=== PATIENT | female | born 1960 | race American Indian/Alaskan Native ===

== ENCOUNTER 2022-01-07 05:46 | Emergency (ER) | payer BC ==
[2022-01-07] MEDS ORDERED: ASPIRIN 325 MG TAB PO ONE (06:06)
--- NOTE | 2022-01-07 06:12 | Emergency Department Report ---
ED Chest Pain HPI - General Chief Complaint: Chest Pain Stated Complaint: CHEST DISCOMFORT Time Seen by Provider: 01/07/22 06:10 Source: patient Mode of arrival: Ambulatory Limitations: No Limitations - History of Present Illness Initial Comments: The patient was evaluated in the emergency department for symptoms described in the history of present illness. He/she was evaluated in the context of the global COVID-19 pandemic, which necessitated consideration that the patient might be at risk for infection with the virus that causes COVID-19. Instit utional protocols and algorithms that pertain to the evaluation of patients at risk for COVID-19 are in a state of rapid change based on information released by regulatory bodies including the CDC and federal and state organizations. These policies and algorithms were followed during the patient's care in the emergency department. Please note that these policies, procedures and recommendations changed on a rapid basis. 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 The patient states the chest discomfort is left lateral thoracic, and occasionally radiates to her back. It is nonexertional, lasts for few seconds, and does not have exacerbating or relieving factors. She denies vomiting, diaphoresis, exertional shortness of breath. She denies all other symptoms. She denies significant family history for CAD/PE/DVT. She does report a recent trip to [facility], and also reports that she drove for approximately 2 hours while in [facility] to get to the beach. No recent aspirin consumption. No recent strenuous heavy lifting. Reports that she is pain-free at this time. MD Complaint: chest pain -: days(s) Pain Location: left chest Pain Radiation: back Quality: aching Consistency: intermittent Improves With: nothing Worsens With: nothing Context: recent travel Aspirin use within the Past 7 Days: (0) No - Related Data Previous Rx's Medication Instructions Recorded Last Taken Type Aspirin [Aspirin BABY CHEW TAB] 81 mg PO QDAY #30 tab.chew 01/07/22 Unknown Rx Allergies Allergy/AdvReac Type Severity Reaction Status Date / Time morphine Allergy Hives Verified 01/07/22 06:03 Heart Score - HEART Score History: Slightly suspicious EKG: Non-specific Age: 45-65 Risk factors: 1-2 risk factors Troponin: < normal limit HEART Score: 3 - EKG Read Time Time EKG Completed: 06:00 EKG Read Time: 06:00 - Critical Actions Critical Actions: 0-3 pts:0.9-1.7%risk of adverse cardiac event.Candidate for discharge ED Review of Systems ROS: Stated complaint: CHEST DISCOMFORT Other details as noted in HPI Comment: All other systems reviewed and negative Cardiovascular: chest pain ED Past Medical Hx - Medications Home Medications: Home Medications Medication Instructions Recorded Confirmed Last Taken Type Aspirin [Aspirin BABY CHEW TAB] 81 mg PO QDAY #30 tab.chew 01/07/22 Unknown Rx ED Physical Exam - General Limitations: No Limitations General appearance: alert, in no apparent distress - Head Head exam: Present: atraumatic, normocephalic - Eye Eye exam: Present: normal appearance, EOMI. Absent: nystagmus - ENT ENT exam: Present: normal exam, normal orophraynx, mucous membranes moist, normal external ear exam - Neck Neck exam: Present: normal inspection, full ROM. Absent: tenderness, meningismus - Respiratory Respiratory exam: Present: normal lung sounds bilaterally. Absent: respiratory distress, wheezes, rales, rhonchi, stridor, decreased breath sounds - Cardiovascular Cardiovascular Exam: Present: regular rate, normal rhythm, normal heart sounds. Absent: bradycardia, tachycardia, irregular rhythm, systolic murmur, diastolic murmur, rubs, gallop - GI/Abdominal GI/Abdominal exam: Present: soft. Absent: distended, tenderness, guarding, rebound, rigid, pulsatile mass - Extremities Exam Extremities exam: Present: normal inspection, full ROM, other (2+ pulses noted in the bilateral upper and lower extremities. There is no palpable cord. negative Homans sign. Muscular compartments are soft. The pelvis is stable.). Absent: pedal edema, calf tenderness - Back Exam Back exam: Present: normal inspection. Absent: tenderness, CVA tenderness (R), CVA tenderness (L), paraspinal tenderness, vertebral tenderness - Neurological Exam Neurological exam: Present: alert, oriented X3, normal gait, other (No facial dr oop. Tongue midline. Extraocular movements intact bilaterally. Facial sensation intact to light touch in V1, V2, V3 distribution bilaterally. 5 and a 5 strength in 4 extremities. Sensation intact to light touch in 4 extremities.). Absent: motor sensory deficit - Psychiatric Psychiatric exam: Present: normal affect, normal mood - Skin Skin exam: Present: warm, dry, intact, normal color. Absent: rash ED Course Vital Signs 01/07/22 01/07/22 01/07/22 05:51 06:27 07:41 Temperature 97.4 F L 98.4 F Pulse Rate 72 58 L Respiratory 16 16 Rate Blood Pressure 148/84 151/68 O2 Sat by Pulse 98 98 100 Oximetry - Reevaluation(s) Reevaluation #1: 01/07/22 06:51 Differential diagnosis, include but not limited to: GERD, gastritis, hiatal hernia, pneumonia, costochondritis, coronary artery disease Assessment and plan: 61-year-old female, who is not currently tachycardic, tachypneic or hypoxic, who is low risk by Wells criteria for pulmonary embolism, Patient has equal pulses in the upper and lower extremities, no pulsatile abdominal mass, and an unremarkable x-ray of the chest, therefore, aortic dise ase is very unlikely. Patient at low risk for major adverse cardiac event as per heart score. Trop onin negative x1 in the context of days of symptoms, therefore, acute myocardial infarction is ruled out. Given recent trip to [facility], a D-dimer is sent, found to be elevated, and therefore, CT scan of the chest is ordered. I did discuss this with the patient, and advised that should ER work-up be unremarkable, it would be reasonable to have her follow-up as an outpatient with cardiology. She endorsed understanding 01/07/22 07:54 01/07/22 08:[address] scan of the chest negative for acute findings. Patient ambulatory around the department, pleasant and cooperative, and in no acute distress. She denies physical pain at this time, and endorses resolution of her symptoms. As a courtesy, I reached out to cardiology on-call, Dr. Bonilla Palomo Discussed the patient's history, physical, laboratory studies and imaging studies and clinical impression. He advises that he can accommodate the patient in [facility], this Saturday, at 9:00 in the morning for stress test. N.p.o. after midnight. I extensively discussed this with the patient, who endorsed understanding. Return precautions are reviewed. All questions are answered STAN score - Stan Score Age > 65: (0) No Aspirin use within the Past 7 Days: (0) No 3 or more CAD Risk Factors: (0) No 2 or more Angina events in past 24 hrs: (0) No Known CAD with more than 50% Stenosis: (0) No Elevated Cardiac Markers: (0) No ST Deviation Greater than 0.5mm: (0) No STAN Score: 0 ED Medical Decision Making - Lab Data Result diagrams: 01/07/22 06:43 01/07/22 06:43 Vital Signs 01/07/22 01/07/22 05:51 06:27 Temperature 97.4 F L Pulse Rate 72 Respiratory 16 Rate Blood Pressure 148/84 O2 Sat by Pulse 98 98 Oximetry - EKG Data -: EKG Interpreted by Nc EKG shows normal: sinus rhythm Rate: normal - EKG Data When compared to previous EKG there are: previous EKG unavailable 01/07/22 06:49 The EKG is interpreted at 06: 00 Sinus rhythm, 62 bpm. Normal axis, normal P wave axis, left ventricular hypertrophy, intervals are within normal limits. This is an abnormal EKG. This is not a STEMI. There is no prior for comparison. - Radiology Data Radiology results: pending, report reviewed, image reviewed CHEST 2 VIEWS INDICATION / CLINICAL INFORMATION: Chest Pain x2days. COMP ARISON: None available. FINDINGS: SUPPORT DEVICES: None. HEART / MEDIASTINUM: No significant abnormality. LUNGS / PLEURA: No significant pulmonary or pleural abnormality. No pneumothorax. BONES: No significant osseous abnormality. ADDITIONAL FINDINGS: No significant additional findings. IMPRESSION: 1. No active cardiopulmonary disease. Signer Name: Hemant Mckeon II, MD Signed: 01/07/2022 5:25 AM Workstation Name: [id number] CTA chest with contrast INDICATION : Acute chest pain, positive D-dimer. TECHNIQUE: Axial imaging performed through the chest, with contrast bolus timing set to maximize opacification of the pulmonary arteries. 3-plane MIP reformatted images were obtained. All CT scans at this location are performed using CT dose reduction for ALARA by means of automated exposure control. 80 mL of intravenous contrast administered. COMPARISON: None FINDINGS: Bolus/PTE: Contrast bolus timing is adequate. No filling defect is present to suggest PTE. Mediastinum: Heart and great vessels appear normal. No pathologic mediastinal adenopathy. Lungs: Lungs are clear. Upper abdomen: Limited imaging of the upper abdomen shows nothing acute. Bones: Degenerative changes in the spine with nothing acute. IMPRESSION: Negative for PTE. Clear lungs. Signer Name: Freedom Comer MD Signed: 01/07/2022 7:17 AM Workstation Name: [id number] Critical care attestation.: If time is entered above; I have spent that time in minutes in the direct care of this critically ill patient, excluding procedure time. ED Disposition Clinical Impression: Nonspecific chest pain Disposition: HOME / SELF CARE / HOMELESS Is pt being admited?: No Does the pt Need Aspirin: No Condition: Good Instructions: Nonspecific Chest Pain, Adult Additional Instructions: As we discussed, patient is scheduled for follow-up with [facility], this Saturday, at 9:00 in the morning, at the [place] location [address] [place], [place] [id number] Do not eat anything after midnight on the preceding evening. Avoid consumption of Motrin, ibuprofen, Naprosyn, Aleve, heavy and spicy foods, alcohol, tobacco, and smoke products. Patient may take a daily aspirin, 81 mg [id number]. Follow-up with her primary care doctor within the next 2 weeks. Please return to the emergency room right away with new pain, worsened pain, migration of pain, projectile vomiting, change in mental status, confusion, inability tolerate liquid feeds, new, worsened or different symptoms not present on the initial emergency room evaluation Do not take metformin medication for the next 2 days, if patient takes this medication. Referrals: NOAH PALOMO MD [Staff Physician] - 01/09/22 9:00 am
--- NOTE | 2022-01-07 06:30 | XRay Report ---
CHEST 2 VIEWS INDICATION / CLINICAL INFORMATION: Chest Pain x2days. COMPARISON: None available. FINDINGS: SUPPORT DEVICES: None. HEART / MEDIASTINUM: No significant abnormality. LUNGS / PLEURA: No significant pulmonary or pleural abnormality. No pneumothorax. BONES: No significant osseous abnormality. ADDITIONAL FINDINGS: No significant additional findings. IMPRESSION: 1. No active cardiopulmonary disease. Signer Name: Hemant Mckeon II, MD Signed: 01/07/2022 6:25 AM Workstation Name: [id number]
[2022-01-07] MEDS ORDERED: ACETAMINOPHEN 325 MG TAB PO ONE (06:42)
[2022-01-07] MEDS ORDERED: PANTOPRAZOLE 40 MG TAB PO ONE (06:42)
[2022-01-07 07:01] LABS: Basophils % (Auto) 0.5 % (0.0-1.8); Eosinophils # (Auto) 0.2 K/mm3 (0.0-0.4); Eosinophils % (Auto) 2.2 % (0.0-4.3); Hematocrit 36.8 % (30.3-42.9); Hemoglobin 12.3 gm/dl (10.1-14.3); Lymphocytes # (Auto) 2.9 K/mm3 (1.2-5.4); Lymphocytes % (Auto) 32.8 % (13.4-35.0); Mean Corpuscular HGB Conc 34 % (30-34); Mean Corpuscular Volume 84 fl (79-97); Monocytes # (Auto) 0.7 K/mm3 (0.0-0.8); Monocytes % (Auto) 7.5 % (0.0-7.3); Platelet Count 280 K/mm3 (140-440); Red Blood Count 4.38 M/mm3 (3.65-5.03); Red Cell Distribution Width 13.9 % (13.2-15.2)
[2022-01-07 07:13] LABS: INR 0.79 (0.87-1.13)
[2022-01-07 07:25] LABS: Alanine Aminotransferase 25 units/L (7-56); Albumin 4.6 g/dL (3.9-5); Blood Urea Nitrogen 11 mg/dL (7-17); Calcium 9.8 mg/dL (8.4-10.2); Hemolysis Index 6
[2022-01-07] MEDS ORDERED: SODIUM CHLORIDE 0.9% 500 ML 500 ML IV ONE (07:33)
[2022-01-07 07:43] VITALS: BP 151/68
[2022-01-07 07:48] LABS: BUN/Creatinine Ratio 14
--- NOTE | 2022-01-07 08:22 | Cat Scan Report ---
CTA chest with contrast INDICATION : Acute chest pain, positive D-dimer. TECHNIQUE: Axial imaging performed through the chest, with contrast bolus timing set to maximize opa cification of the pulmonary arteries. 3-plane MIP reformatted images were obtained. All CT scans at this location are performed using CT dose reduction for ALARA by means of automated exposure control. 80 mL of intravenous contrast administered. COMPARISON: None FINDINGS: Bolus/PTE: Contrast bolus timing is adequate. No filling defect is present to suggest PTE. Mediastinum: Heart and great vessels appear normal. No pathologic mediastinal adenopathy. Lungs: Lungs are clear. Upper abdomen: Limited imaging of the upper abdomen shows nothing acute. Bones: Degenerative changes in the spine with nothing acute. IMPRESSION: Negative for PTE. Clear lungs. Signer Name: Freedom Comer MD Signed: 01/07/2022 8:17 AM Workstation Name: [id number]
== END 2022-01-07 09:14 | disposition home or self-care (01) ==
LOC: ED 05:46
DX: R07.89 Other chest pain (principal); Z88.5 Allergy status to narcotic agent
CPT/HCPCS: 36415; 71046; 71275; 80053; 82550; 83735; 84484; 85025; 85379; 85610; 93005; 99284; Q9967